=== PATIENT | male | born 1940 | race Caucasian/White ===

== ENCOUNTER 2018-07-08 07:35 | Day surgery (SDC) | payer OTHER ==
[2018-07-01 09:41] VITALS: BMI 24.6
[2018-07-08] MEDS ORDERED: PROPOFOL 20 ML ONE ×2 (07:39)
[2018-07-08] MEDS ORDERED: LIDOCAINE HCL/PF 2% SDV 5ML VIAL ONE (07:39)
[2018-07-08 10:04] VITALS: BP 116/68; PULSE 51; TEMP 97.8
--- NOTE | 2018-07-10 11:02 | PATH ---
Surgical Pathology Report Patient Name: KARLA GARZA [facility]. Rec. #: [id number] /Age/Gender: 1940 (Age: 77) / M Account: [id number] Location: [facility]ENDOSCOPY Taken: 07/08/2018 Received: 07/08/2018 Reported: 07/10/2018 Physicians: Puma Merrill M.D. Specimen(s) Received A: BX DUODENUM B: BX ANTRUM C: GASTRIC POLYP Clinical History GERD Postoperative diagnosis: Rule out celiac disease, gastric polyp, gastritis Final Diagnosis A. DUODENUM, BIOPSY: DUODENAL MUCOSA WITH NO PATHOLOGIC CHANGES. NO HISTOLOGIC EVIDENCE OF GLUTEN SENSITIVE ENTEROPATHY (CELIAC SPRUE) IDENTIFIED. B. STOMACH, ANTRUM, BIOPSY: GASTRIC ANTRAL MUCOSA WITH NO PATHOLOGIC CHANGES. IMMUNOSTAIN FOR H. PYLORI IS NEGATIVE. C. STOMACH, POLYP, BIOPSY: FUNDIC GLAND POLYP WITH MILD CHRONIC GASTRITIS. NO ADENOMATOUS CHANGE IDENTIFIED. IMMUNOSTAIN FOR H. PYLORI IS NEGATIVE. Electronically Signed Kev Sanchez M.D. Gross Description A. Received in formalin, labeled "duodenum" is a chahal, irregular portion of soft tissue measuring 0.3 cm. in greatest dimension. The specimen is submitted in toto in one cassette. B. Received in formalin, labeled "antrum" are 2 chahal, irregular portions of soft tissue measuring 0.5 and 0.7 cm. in greatest dimension. The specimens are submitted in toto in one cassette. C. Received in formalin, labeled "gastric polyp" is a chahal, irregular portion of soft tissue measuring 0.3 cm. in greatest dimension. The specimen is submitted in toto in one cassette. 07/09/2018 [facility]07/09/2018
== END 2018-07-08 10:04 | disposition home or self-care (01) ==
LOC: FASU-ENDO 07:35
PROVIDERS: ATTEND Internal Medicine Gastroenterology
PROC: 0DB98ZX Excision of Duodenum, Via Natural or Artificial Opening Endoscopic, Diagnostic (ICD-10-PCS; principal; 2018-07-08 08:49)
PROC: 0DB68ZX Excision of Stomach, Via Natural or Artificial Opening Endoscopic, Diagnostic (ICD-10-PCS; 2018-07-08 08:49)
DX: K29.50 Unspecified chronic gastritis without bleeding (principal); K31.7 Polyp of stomach and duodenum; K44.9 Diaphragmatic hernia without obstruction or gangrene
CPT/HCPCS: 88305-TC; 88342-TC

== ENCOUNTER 2018-10-13 08:28 | Day surgery (SDC) | payer OTHER ==
[2018-10-08 18:42] VITALS: BMI 23.9
[2018-10-13 08:53] LABS: BASO % 0.8 % (0-2.0); EOS % 3.5 % (0-4.5); HEMATOCRIT 36.6 % (35.4-49); HEMOGLOBIN 13.2 GM/dL (11.7-16.9); LYMPH % 14.8 % (8-40); MCH 32.3 pg (25.7-33.7); MCHC 36.1 g/dl (32.0-35.9); MEAN CELL VOLUME 89.6 fl (80-96); MEAN PLT VOLUME 7.5 fl (7.5-11.1); MONO % 9.1 % (3.8-10.2); NEUT % 71.8 % (42.8-82.8); PLATELET COUNT 305 K/MM3 (134-434); RBC 4.08 M/mm3 (4.00-5.60); RDW 14.7 % (11.9-15.9); WHITE BLOOD COUNT 9.3 K/mm3 (4.0-10.0)
[2018-10-13 09:05] LABS: INR 1.15 (0.83-1.09); PROTHROMBIN TIME (PATIENT) 13.6 SEC (9.7-13.0)
[2018-10-13] MEDS ORDERED: ACETAMINOPHEN 325 MG TABLET (FP) ONE (12:25)
[2018-10-13] MEDS ORDERED: ACETAMINOPHEN 325 MG TABLET (FP) PO ONE (12:35)
[2018-10-13 15:42] VITALS: TEMP 98.4
[2018-10-13 15:46] VITALS: BP 118/75; PULSE 64
--- NOTE | 2018-10-14 15:49 | PATH ---
Surgical Pathology Report Patient Name: KARLA GARZA Med. Rec. #: [id number] /Age/Gender: 1940 (Age: 77) / M Account: [id number] Location: RADIOLOGY INTER Taken: 10/13/2018 Received: 10/13/2018 Reported: 10/14/2018 Physicians: Melly Manuel Specimen(s) Received LIVER BIOPSY Clinical History Pancreas mass with liver masses Final Diagnosis LIVER, CORE BIOPSY: ADENOCARCINOMA, MODERATELY DIFFERENTIATED. SEE COMMENT. Comment: Immunohistochemical stains performed and interpreted at [facility] show the tumor is positive for AE1/3 and CK7, while negative for CK20. Although non-specific, this immunophenotype is compatible with pancreaticobiliary origin. Suggest clinical and radiologic correlation. History of pancreatic mass and liver masses noted. Office of Dr. Chavez informed that significant findings will be faxed (Pavi). Electronically Signed Alondra Nation M.D. Gross Description Received in formalin labeled "liver biopsy," are 4 chahal, cylindrical portions of soft tissue averaging 0.7 cm in length and 0.1 cm in diameter. The specimens are submitted in toto in one cassette. 10/13/201810/13/2018
== END 2018-10-13 15:56 | disposition home or self-care (01) ==
LOC: JRADIR 08:28
PROVIDERS: ATTEND Internal Medicine Geriatric Medicine
PROC: 0FB03ZX Excision of Liver, Percutaneous Approach, Diagnostic (ICD-10-PCS; principal; 2018-10-13)
DX: C22.7 Other specified carcinomas of liver (principal)
CPT/HCPCS: 36415; 47000; 85025; 85610; 88307-TC; 88341-TC; 88342-TC

== ENCOUNTER 2018-11-15 00:35 | Emergency (ER) | payer OTHER ==
[2018-11-15 01:26] VITALS: TEMP 97.9; BMI 22.9
--- NOTE | 2018-11-15 01:33 | PDOC ---
Attending Attestation - Resident Resident Name: Juan FCoral - ED Attending Attestation I have performed the following: I have examined & evaluated the patient, The case was reviewed & discussed with the resident, I agree w/resident's findings & plan - HPI HPI: 11/15/18 06:51 Pt comes with constipation and total body dolor, due to his cancer; pancreatic cancer and now with constpation due to the narcotics he was prescribed. Pt had one round of chemo. - Physicial Exam PE: 11/15/18 06:52 Agree with resident's exam. Pt's abd is soft and NT ND; he is slightly gassy - consistent with constipation. 11/15/18 06:53 Afebrile. No flank pain, no extremity swelling. No rashes. - Medical Decision Making 11/15/18 06:53 Home with miralax and with fleets enemas. Recommend prune juice.
--- NOTE | 2018-11-15 01:56 | PDOC ---
History of Present Illness - General Chief Complaint: Constipation Stated Complaint: SICK Time Seen by Provider: 11/15/18 01:29 History Source: Patient Exam Limitations: No Limitations - History of Present Illness Initial Comments: 11/15/18 01:35 77 YOM with h/o hemorrhoids, pancreatic CA with mets to liver, started chemo this past week, and also is on home narcotic pain relievers, also medicated for HTN and has h/o one prior abdominal surgery 50 years ago, who p/w constipation and abdominal pain/distention. Denies f/c/n/v/d, CP, SOB, or any other symptoms. States it feels like the stool is ready to come out but it just won' t. States it has been days since his last BM. No rectal bleeding. States he has been eating and drinking too little over the past week, feels he is dehydrated. Past History - Past Medical History Allergies/Adverse Reactions: Allergies Allergy/AdvReac Type Severity Reaction Status Date / Time No Known Allergies Allergy Verified 11/15/18 01:26 Home Medications: Ambulatory Orders Multivitamin with Minerals [Multiple Vitamin] 1 each PO AM tablet 12/25/12 Niagen 1 tablet PO DAILY 04/04/16 Magnesium Carb/Aluminum Hydrox [Gaviscon Es Tablet Chew] 1 each PO DAILY [place]-3/Dha/Epa/Fish Oil [[place] 3 500 Softgel] 1 cap PO BID 07/01/18 Pantoprazole Sodium [Protonix] 40 mg PO HS 07/01/18 Potassium Chloride [Klor-Con M10] 20 meq PO AM 07/01/18 Triamterene/Hydrochlorothiazid [Triamterene-Hctz 37.5-25 mg Cp] 1 each PO AM Verapamil HCl [Verapamil ER] 240 mg PO HS 07/01/18 Naproxen [Naprosyn] 500 mg PO PRN PRN 10/08/18 Anemia: No Asthma: No Cancer: No Cardiac Disorders: No CVA: No COPD: No CHF: No Dementia: No Diabetes: No GI Disorders: Yes (GERD) Disorders: No HTN: Yes (DX 1992) Hypercholesterolemia: Yes Liver Disease: No Seizures: No Thyroid Disease: No - Surgical History Abdominal Surgery: Yes (BILATERAL INGUINAL HERNIA REPAIR) Appendectomy: Yes (OPEN) Cardiac Surgery: No Cholecystectomy: No Lung Surgery: No Neurologic Surgery: No Orthopedic Surgery: No - Suicide/Smoking/Psychosocial Hx Smoking History: Never smoked Have you smoked in the past 12 months: No Information on smoking cessation initiated: No Hx Alcohol Use: No Drug/Substance Use Hx: No Substance Use Type: Alcohol Hx Substance Use Treatment: No Review of Systems - Review of Systems Able to Perform ROS?: Yes Comments:: 11/15/18 01:58 GEN: no fever, chills, malaise, or generalized weakness HEENT: no ear pain, sore throat, vision change, or eye pain CV: no chest pain, palpitations, lightheadedness, syncope, or edema RESP: no cough, wheezing, or SOB GI: constipation, abdominal pain, decreased PO intake of solids and liquids, no nausea, vomiting, diarrhea, or white/black/bloody stool : no dysuria, hematuria, incontinence, retention, bleeding, or discharge MSK: no neck/back pain, muscle weakness/pain, or joint swelling/pain NEURO: no headache, seizure, vertigo, numbness, tingling, or focal weakness PSYCH: no substance use, no behavior change SKIN: no jaundice, no rash ROS otherwise negative except as noted in HPI *Physical Exam - Vital Signs Last Vital Signs Temp Pulse Resp BP Pulse Ox 97.9 F 107 H 18 165/74 100 11/15/18 00:35 11/15/18 00:35 11/15/18 00:35 11/15/18 00:35 11/15/18 00:35 - Physical Exam Comments: 11/15/18 02:00 GENERAL: uncomfortable but nontoxic appearing, A/Ox4, mild distress, answers questions appropriately HEENT: PERRLA, EOMI, moist mucous membranes NECK/BACK: no midline ttp, no spinal stepoff or deformity, no hematoma, full ROM , neck supple CARDIOVASCULAR: regular rate/rhythm, normal S1S2, no MGR, strong peripheral pulses, capillary refill <2 seconds, extremities wwp, no edema LUNGS/RESPIRATORY: no respiratory distress, CTAB GI/ABDOMEN: distended, symmetric [id number], normoactive BS, soft, no ttp, no midline pulsatile masses, rectal with external and internal hemorrhoids, large amount of hard brown stool in rectal vault, disimpacted during exam, tolerated well. : no CVA tenderness EXTREMITIES: no muscle atrophy, no acute deformity, no edema SKIN: warm and dry, no pallor, no jaundice, no rash, no bruising, no skin breakdown, no cuts, no lesions NEUROLOGICAL: GCS 15, CN II-XII grossly intact, 5/5 strength proximally and distally, no facial droop Moderate Sedation - Procedure Monitoring Vital Signs: Procedure Monitoring Vital Signs Temperature 97.9 F 11/15/18 00:35 Pulse Rate 107 H 11/15/18 00:35 Respiratory Rate 18 11/15/18 00:35 Blood Pressure 165/74 11/15/18 00:35 O2 Sat by Pulse Oximetry (%) 100 11/15/18 00:35 Medical Decision Making - Medical Decision Making 11/15/18 02:02 Pt presents with abdominal distention and discomfort. Initial Vital Signs Temp Pulse Resp BP Pulse Ox 97.9 F 107 H 18 165/74 100 11/15/18 00:35 11/15/18 00:35 11/15/18 00:35 11/15/18 00:35 11/15/18 00:35 Exam: As noted in Physical Exam section. DDX IBNLT: SBO, constipation, gas, ascites, GI perforation, abdominal compartment syndrome, colitis or diverticulitis wwo rupture or abscess, toxic megacolon, appendicitis wwo rupture, pancreatitis wwo abscess/pseudocyst (MC cause gallstones and EtOH; also hypercalcemia, neoplasm, medications, ERCP complication, abdominal surgery/instrumentation, trauma, SBP (nati. w/ h/o cirrhosis/EtOH), AAA/AD wwo rupture, ischemic colitis wwo perforation (embolism , bowel obstruction, inadequate systemic perfusion, medications, surgery- induced vascular compromise), etc. W/U ordered: None TX ordered: Fleet enema, Pepcid, Zofran, IVF I disimpacted a moderate amount of hard brown stool. Patient subseqently given the Fleet enema. Small amount of output after the Fleet enema. 11/15/18 06:05 Reassessment: Patient states improved but still painful. On reassessment he has mild ttp diffusely worse in suprapubic and LLQ. I have placed an order for 30 mg Toradol IV. I also have discussed with the patient and the option of XR to determine stool burden. Order placed for XR abdomen flat/upright and rads techs called. Repeat VS: DISCHARGE This patient has gotten significant relief of symptoms while in the ED. On last reassessment, vitals are wnl, pain is reasonably controlled, and exam is benign. Workup is not concerning for emergency-level pathology at this time. This patient is appropriate for discharge with close outpatient follow up. The Pt is comfortable with this plan and will follow up with their primary care provider in 1-3 days. She will take Motrin and/or Tylenol for pain. Specific return precautions are discussed and they will come back to the ER if necessary. *DC/Admit/Observation/Transfer Diagnosis at time of Disposition: Constipation Qualifiers: Constipation type: drug induced constipation Qualified Code(s): K59.03 - Drug induced constipation - Discharge Dispostion Condition at time of disposition: Stable - Referrals Referrals: Nguyễn Chavez MD [Primary Care Provider] - - Patient Instructions Printed Discharge Instructions: DI for Constipation Additional Instructions: You were seen in the ER for constipation and abdominal pain. We did an exam, disimpacted the stool, and gave you IV medications and fluids. After our assessment, we believe you are not having a medical emergency anymore and you are safe to go home. Please continue taking your pain medications with the lowest dose possible to control your pain, because the side effects include constipation. 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 Follow up with your primary care provider(s) in the next 1-3 days. Call their clinic [facility] , tell them you were seen in the ER, and tell them you need an appointment. Please come back to the ER at any time, 24 hours a day, for any new or worsening symptoms, like worsening pain, inability to pass gas, fever, inability to keep down liquids, or other symptoms. If you are having severe or life threatening symptoms, or symptoms that make it unsafe to drive or have someone drive you, please call 911. - Post Discharge Activity
[2018-11-15] MEDS ORDERED: SODIUM PHOSPHATE/NA BIPHOS 133 ML ENEMA PR ONE (01:57)
[2018-11-15] MEDS ORDERED: SODIUM CHLORIDE 0.9% 500 ML INFUS.BAG IV ONE (01:57)
[2018-11-15] MEDS ORDERED: ONDANSETRON 4 MG/2 ML VIAL IVPUSH ONE ×2 (02:14→04:07)
[2018-11-15] MEDS ORDERED: FAMOTIDINE 20 MG/50 ML IVPB 20 MG/50 ML MG IVPB ONE ×2 (02:14→02:56)
[2018-11-15] MEDS ORDERED: ONDANSETRON 4 MG/2 ML VIAL ONE ×2 (02:55→04:28)
[2018-11-15] MEDS ORDERED: morphine CARPU-JECT 4 MG/1 ML DISP.SYRIN IVPUSH ONE ×2 (03:21→03:54)
[2018-11-15] MEDS ORDERED: MORPHINE SULFATE 2 MG/ML VIAL ONE ×2 (03:22→04:28)
[2018-11-15] MEDS ORDERED: POLYETHYLENE GLYCOL 3350 119 GM BTL PO ONE (03:44)
[2018-11-15] MEDS ORDERED: KETOROLAC TROMETHAMINE 30 MG/1 ML VIAL IVPUSH ONE (06:04)
[2018-11-15] MEDS ORDERED: KETOROLAC TROMETHAMINE 30 MG/1 ML VIAL ONE (06:15)
[2018-11-15 06:58] VITALS: BP 126/84; PULSE 100
== END 2018-11-15 07:10 | disposition home or self-care (01) ==
LOC: JER 00:35
DX: K59.03 Drug induced constipation (principal); Z85.07 Personal history of malignant neoplasm of pancreas; Z85.05 Personal history of malignant neoplasm of liver
CPT/HCPCS: 74019-TC-FY; 99283-25